=== PATIENT | female | born 1990 | race Caucasian/White ===

== ENCOUNTER 2023-04-27 10:37 | Emergency (ER) | payer OTHER, SELFPAY ==
--- NOTE | ~2023-04-27 | XR_ITS ---
EXAMINATION: XR KNEE, RIGHT CLINICAL INFORMATION: Twisted right knee. COMPARISON: None available. TECHNIQUE: Four views of the right knee. FINDINGS: No fracture or joint effusion. Alignment is anatomic. Joint spaces are maintained. No abnormal soft tissue calcification. XR/XR knee RT 3V IMPRESSION: Normal right knee.
[2023-04-27 11:10] VITALS: BP 102/62; PULSE 82; RESP 19; TEMP 36.6; O2SAT 98; BMI 22.5
--- NOTE | 2023-04-27 12:13 | ED_ITS ---
HPI - Extremity Injury (Lower) General Chief Complaint: Extremity Injury, Lower Stated Complaint: R knee Injury Time Seen by Provider: 04/27/23 11:59 History of Present Illness HPI Narrative: Patient is a 32 year old female with no PMH who presents to the ED due to right knee pain. She went hiking earlier today and states that she twisted her knee while walking on the trail. She was carrying about 85 pounds on her back during the time and recalls hearing a slight popping sensation. After the incident, she shook her right leg and felt as though something popped back into place. She finished the hike and continued to walk despite the pain. She experiences TTP at the right knee. She did not apply any ice to the area but applied cold water to the area prior to coming to the ED. She denies experiencing a decrease in sensation in both lower extremities or the inability to move her feet and toes. Related Data Allergies Allergy/AdvReac Type Severity Reaction Status Date / Time No Known Allergies Allergy Verified 04/27/23 11:09 Review of Systems Review of Systems: Yes all other systems are reviewed and are negative Constitutional: Constitutional: Reports no additional constitutional complaints, Denies body ache(s), Denies chills, Denies fever(s), Denies headache(s) and Denies weakness Eyes: Eyes: Reports no additional eye complaints and Denies change in vision ENT: Reports system reviewed and no additional complaints, except as documented, Denies dizziness, Denies headache(s), Denies nasal congestion, Denies nasal discharge and Denies neck pain Cardiovascular: Cardiovascular: Reports no additional cardiovascular complaints, Denies chest pain, Denies leg edema and Denies dyspnea Respiratory: Respiratory: Reports no additional respiratory complaints, Denies cough and Denies dyspnea Gastrointestinal: Gastrointestinal: Reports no additional gastrointestinal complaints, Denies abdominal pain, Denies diarrhea, Denies nausea and Denies vomiting Genitourinary: Genitourinary: Reports no additional female genitourinary complaints and Denies urinary incontinence Musculoskeletal: Musculoskeletal: Reports no additional musculoskeletal complaints, Denies back pain, Reports arthralgias, Denies joint swelling, Denies neck pain, Denies numbness and Denies tingling Integumentary/Breasts: Skin/Breast: Reports system reviewed and no additional complaints, except as docu and Denies rash Neurologic: Reports system reviewed and no additional complaints, except as documented, Denies Abnormal speech present, Denies dizziness, Denies headache(s), Denies numbness, Denies tingling and Denies weakness PMFSH Past Medical History Attestation statement: The following information was validated with the patient. Source: old records reviewed and nursing notes reviewed Social History Social History Advance Directives: No Physical Exam Vital Signs: Vital Signs: Last Vital Signs Temp 98 F 04/27/23 11:10 Pulse 82 04/27/23 11:10 Resp 19 04/27/23 11:10 BP 102/62 04/27/23 11:10 Pulse Ox 98 04/27/23 11:10 O2 Del Method Room Air 04/27/23 11:10 BMI result Body Mass Index 22.5 Const: General: cooperative, healthy appearing, comfortable and no acute distress Orientation/consciousness: patient oriented x3 Limitations: no limitations HEENT: Head: Yes normal to inspection Ears: hearing grossly normal bilaterally General nose exam: Normal external nose present Face and sinus: Yes normal facial exam Mouth: Normal oral and palatal mucosa present Throat: Yes posterior oropharynx normal Eyes: General: appearance normal, both eyes and all related structures Pupils: Equal, round and reactive pupils present Neck: Neck: Yes normal visual inspection Chest: Chest palpation & inspection: normal inspection of the chest Resp: Effort & Inspection: normal respiratory effort Auscultation: clear to auscultation bilaterally Cardio: Rate: regular rate Rhythm: regular rhythm Peripheral pulses: Peripheral pulses 2+ throughout GI: Inspection: Yes normal to inspection Palpation (GI): Soft to palpation and nontender Auscultation: normal bowel sounds Back/Spine/Pelvis: Thoracic/Lumbar Spine: thoracic and lumbar spine normal to inspection Skin: General skin exam: no rashes or lesions noted Neuro: General: patient oriented x3, no focal motor deficits and normal sensation to monofilament Cranial nerves: Yes Equal, round and reactive pupils present Cognition (Neuro): normal cognition Speech: No Abnormal speech present Gait exam (Neuro): Normal gait present Motor exam (neuro): 5/5 motor strength present throughout Extrem: Other: full range of motion both passively and actively of the right knee. No ligamental laxity. Patient has normal distal range of motion of the right foot and right ankle. She has normal distal sensation. Normal DP and PT pulses. General: Yes normal to inspection, Yes full ROM and Yes capillary refill normal Course Course Course Narrative: x-ray shows no fracture. Likely sprain. Patient given Justo wrap and crutches for home. Reviewed rice. Reviewed worrisome signs symptoms of when to return to the emergency room. Comfortable plan for discharge home. Medical Decision Making Medical Decision Making MDM Narrative: Patient is a 32 year old female with no PMH who presents to the ED due to right knee pain. She went hiking earlier today and states that she twisted her knee while walking on the trail. She was carrying about 85 pounds on her back during the time and recalls hearing a slight popping sensation. After the incident, she shook her right leg and felt as though something popped back into place. She finished the hike and continued to walk despite the pain. She experiences TTP at the right knee. She did not apply any ice to the area but applied cold water to the area prior to coming to the ED. She denies experiencing a decrease in sensation in both lower extremities or the inability to move her feet and toes. full range of motion both passively and actively of the right knee. No ligamental laxity. Patient has normal distal range of motion of the right foot and right ankle. She has normal distal sensation. Normal DP and PT pulses. Will check x-rays Differential Diagnosis Differential Diagnoses: The differential diagnosis associated with the presentation includes fracture, strain, sprain low concern for dislocation, vascular injury Admission/Observation Consideration of admission/observation: Escalation of care including adm ission/observation considered low concern for vascular injury with distal CMS so no need for additional imaging, orthopedic/vascular consultation and/or intervention Independent Interpretation I performed an independent interpretation of an: Plain X-Ray Interpretation: I independently reviewed the x-ray and agree with the radiology report Radiology Impression Discussion of test interpretation with radiology: I have reviewed the radiologist's reading. Radiologist Impression: [address] [address] XRay Report Signed Patient: Tootie Galvez MR#: [id number] : 1990 Acct:[id number] Age/Sex: 32 / F ADM Date: 04/27/23 Loc: HO.ED Attending Dr: Ordering Physician: Generic ED Physician Date of Service: 04/27/23 Procedure(s): XR knee RT 3V Accession Number(s): [id number] cc: Generic ED Physician; Physician,Unknown ~ EXAMINATION: XR KNEE, RIGHT CLINICAL INFORMATION: Twisted right knee. COMPARISON: None available. TECHNIQUE: Four views of the right knee. FINDINGS: No fracture or joint effusion. Alignment is anatomic. Joint spaces are maintained. No abnormal soft tissue calcification. XR/XR knee RT 3V IMPRESSION: Normal right knee. Independent Historian Clinical information obtained from an independent historian. History obtained from or confirmed by: Friend Tests considered The following testing was considered but not selected: no concern for vascular injury necessitating need for CT angio of the extremity Prescription Management I considered prescription management with: Pain Medication pain could be managed with NSAIDs at home Discharge Plan Discharge Clinical Impression: Knee sprain Patient Disposition: Home, Self-Care Instructions: Knee Sprain (ED), Crutch Instructions (ED), How to Use an Elastic Bandage (ED), R.I.C.E. Treatment (ED) Additional Instructions: rest, elevation, ice use the Justo wrap and crutches the next few days until able to bear weight without experiencing pain Take Motrin 3 times daily Follow-up with primary care doctor for any continued symptoms Referrals: Physician,Unknown J [Primary Care Provider] - 10 days Stand Alone Forms: Work/School Release
== END 2023-04-27 13:02 | disposition home or self-care (01) ==
PROVIDERS: Emergency Provider Emergency Medicine
DX: S83.91XA Sprain of unspecified site of right knee, initial encounter (principal); X50.1XXA Overexertion from prolonged static or awkward postures, initial encounter; Y93.31 Activity, mountain climbing, rock climbing and wall climbing; Y92.828 Other wilderness area as the place of occurrence of the external cause; Y99.9 Unspecified external cause status
CPT/HCPCS: 73562; 99282; 99283

== ENCOUNTER 2024-05-03 07:12 | Emergency (ER) | payer OTHER, SELFPAY ==
--- NOTE | ~2024-05-03 | XR_ITS ---
EXAMINATION: XR ANKLE, LEFT CLINICAL INFORMATION: Pain COMPARISON: None available. TECHNIQUE: AP, lateral, and mortise views of the left ankle. FINDINGS: Visualized portion of the distal tibia and fibula demonstrate no fracture. Ankle mortise is well-maintained. No localized soft tissue swelling. No radiopaque foreign body. No gross ankle joint effusion. XR/XR ankle LT 2V IMPRESSION: Unremarkable radiographs of the left ankle. Electronically signed by: Jovani Bray MD 05/03/2024 07:52 AM EDT
[2024-05-03 07:24] VITALS: BP 115/77; PULSE 69; RESP 16; TEMP 36.1; O2SAT 98; BMI 21.0
--- NOTE | 2024-05-03 08:05 | ED_ITS ---
HPI - Extremity Injury (Lower) General Chief Complaint: Extremity Injury, Lower Stated Complaint: lt achilles pain Time Seen by Provider: 05/03/24 07:30 Source: patient Mode of arrival: ambulatory Limitations: no limitations History of Present Illness ED Provider: Miguel Ángel Mtz PA-C HPI Narrative: 33 yo female presents to the ER for evaluation of left Achilles pain that started yesterday. 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 She denies any specific injury or insult to the area. Her medical staff officer examined her foot and ankle, they noted some ?clicking? in her left Achilles and recommended she come to the ER for evaluation. She woke up today with improved pain. She is able to ambulate. No swelling in the area. No numbness or tingling in the foot. Pain yesterday was worse with dorsiflexion and plantar flexion. No pain today. MD complaint: foot injury Onset (ago): day(s) (1) Type of Injury: unknown Place: other ([employer] drill area) Severity: moderate Relieving factors: rest Exacerbating factors: weight bearing, movement and palpation Context: running Associated symptoms: snap/pop sensation and ambulatory Other symptoms: none Related Data Previous Rx's ?Medication ?Instructions ?Recorded naproxen 500 mg tablet,delayed 500 mg PO BID PRN pain #20 tabs 05/03/24 release Allergies Allergy/AdvReac Type Severity Reaction Status Date / Time No Known Allergies Allergy Verified 05/03/24 07:26 Review of Systems Review of Systems: Yes all other systems are reviewed and are negative [facility] Social History Social History Advance Directives: No Advance Directives Information Provided: No Do you have a plan to hurt others: No Plan Physical Exam Vital Signs: Vital Signs: Last Vital Signs Temp 96.9 F 05/03/24 07:24 Pulse 69 05/03/24 07:24 Resp 16 05/03/24 07:24 BP 115/77 05/03/24 07:24 Pulse Ox 98 05/03/24 07:24 O2 Del Method Room Air 05/03/24 07:24 BMI result Body Mass Index 21.0 Appearance: Alert. Oriented X3. No acute distress. HEENT: normal inspection CVS: Normal heart rate and rhythm. Pulses normal. Respiratory: No respiratory distress. Skin: Skin warm and dry. Normal skin color. Normal skin turgor. No rashes. Extremities: Normal inspection of the left ankle, no swelling. Nontender medial and lateral malleoli. Mild tenderness in the belly of the left Achilles with nontender insertion site down in the calcaneus. Negative Bacon test. No overlying erythema or swelling of the Achilles tendon foot is warm and well- perfused with 2+ DP and PT pulses Neuro: Oriented X 3. No motor deficit. No sensory deficit. Medical Decision Making Medical Decision Making MDM Narrative: 33-year-old female who works in the [employer] presents for left Achilles pain with a clicking sensation that occurred yesterday after running. No injury. No swelling. On examination the exam is benign, mild tenderness at the left Achilles, Bacon test is negative. Her x-ray today is negative. Most likely patient is suffering from Achilles tendinopathy with micro trauma from running and training. Treatment is rest, NSAIDs. Patient counseled on likely diagnosis and management as well as return precautions and outpatient follow-up recommendations. She is stable for HI home Differential Diagnosis Differential Diagnoses: The differential diagnosis associated with the presentation includes Achilles tendonitis, Achilles tendinopathy, micro tear of the Achilles tendon, ankle sprain, low suspicion for fracture or tendon rupture Independent Interpretation I performed an independent interpretation of an: Plain X-Ray Interpretation: No acute fracture, no significant soft tissue swelling Radiology Impression Discussion of test interpretation with radiology: I have reviewed the radiologist's reading. Radiologist Impression: XR/XR ankle LT 2V IMPRESSION: Unremarkable radiographs of the left ankle. Tests considered The following testing was considered but not selected: MR of the Achilles tendon was considered however not clinically indicated today Prescription Management I considered prescription management with: Pain Medication Critical Care Time Critical Care Time Critical Care Time: No Discharge Plan Discharge Clinical Impression: Achilles tendinosis Patient Disposition: Home, Self-Care Instructions: Achilles Tendinitis (ED) Additional Instructions: Your x-ray today was normal. Rest your foot, limit running as this can make it worse. Recommend BRISSA wrap for support and compression. Use ice several times per day for the next 48 hours. Recommend anti-inflammatory medications 2 times a day for the next 7-10 days. Take this medicine with food Follow up with your doctor as needed. If you have recurrent pain in this area, recommend following up with orthopedics for further evaluation and treatment. Name and number below. Prescriptions: New naproxen 500 mg tablet,delayed release (DR/EC) 500 mg PO BID PRN (Reason: pain) Qty: 20 0RF Referrals: [facility] [place] Orthopedic Surgeons [Provider Group] (left achilles tendonopathy) Print Language: Bermudian
[2024-05-03 09:10] VITALS: BP 115/77; PULSE 69; RESP 16; TEMP 36.1; O2SAT 98
== END 2024-05-03 09:11 | disposition home or self-care (01) ==
PROVIDERS: Emergency Provider Emergency Medicine
DX: M76.62 Achilles tendinitis, left leg (principal); M25.572 Pain in left ankle and joints of left foot
CPT/HCPCS: 73600; 99282; 99283